=== PATIENT | female | born 1960 | race Caucasian/White ===

== ENCOUNTER 2016-07-21 18:33 | Emergency (ER) | payer MEDICAID ==
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
[2016-07-21 20:09] LABS: APPEARANCE,URINE SLIGHTLY-CLOUDY; BILIRUBIN,URINE NEGATIVE (NEGATIVE); GLUCOSE, URINE >=500 mg/dL (NEGATIVE); KETONES,URINE NEGATIVE (NEGATIVE); LEUKOCYTE ESTERASE,URINE SMALL (NEGATIVE); NITRITE,URINE NEGATIVE (NEGATIVE); PROTEIN,URINE NEGATIVE (NEGATIVE); URINE SPECIFIC GRAVITY 1.028; UROBILINOGEN,URINE NEGATIVE mg/dL (<2.0)
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
[2016-07-21] MEDS ORDERED: FLUCONAZOLE 100 MG TABLET PO ONE (22:09)
[2016-07-21 22:33] VITALS: BP 124/90
== END 2016-07-21 22:33 | disposition home or self-care (01) ==
LOC: ER 18:33
DX: N39.0 Urinary tract infection, site not specified (principal); M54.9 Dorsalgia, unspecified; R35.0 Frequency of micturition; F17.200 Nicotine dependence, unspecified, uncomplicated; E11.9 Type 2 diabetes mellitus without complications; E03.9 Hypothyroidism, unspecified; Z91.040 Latex allergy status
CPT/HCPCS: 81001; 99283

== ENCOUNTER 2016-07-23 17:48 | Emergency (ER) | payer MEDICAID ==
--- NOTE | 2016-07-23 18:01 | ER Document Report ---
ED Medical Screen (RME) - General Stated Complaint: POSSIBLE CYST Notes: patient is a 56 year old female who presents today with multitude of complaints. painful area on her left butt cheek for two weeks that is not draining tooth ache bothering her for 4 weeks admits to vaginal itching neck pain states shes been on lots of antibiotics that she received from here and urgent care. I have greeted and performed a rapid initial assessment of this patient. A comprehensive ED assessment and evaluation of the patient, analysis of test results and completion of the medical decision making process will be conducted by additional ED providers. TRAVEL OUTSIDE OF THE [place] IN LAST 30 DAYS: No - Related Data Allergies/Adverse Reactions: adhesive tape Allergy (Verified 07/23/16 18:00) Latex, Natural Rubber Allergy (Verified 07/23/16 18:00) Past Medical History Endocrine Medical History: Reports: Hx Diabetes Mellitus Type 2, Hx Hypothyroidism Renal/ Medical History: Denies: Hx Peritoneal Dialysis Past Surgical History: Reports: Hx Abdominal Surgery - Immunizations Hx Diphtheria, Pertussis, Tetanus Vaccination: - unknown Physical Exam - Vital signs Vitals: Temp Pulse Resp BP Pulse Ox 97.3 F 88 20 116/69 96 07/23/16 17:58 07/23/16 17:58 07/23/16 17:58 07/23/16 17:58 07/23/16 17:58 Course - Vital Signs Vital signs: Temp Pulse Resp BP Pulse Ox 97.3 F 88 20 116/69 96 07/23/16 17:58 07/23/16 17:58 07/23/16 17:58 07/23/16 17:58 07/23/16 17:58
[2016-07-23 18:47] LABS: APPEARANCE,URINE SLIGHTLY-CLOUDY; BILIRUBIN,URINE NEGATIVE (NEGATIVE); GLUCOSE, URINE >=500 mg/dL (NEGATIVE); KETONES,URINE NEGATIVE (NEGATIVE); LEUKOCYTE ESTERASE,URINE NEGATIVE (NEGATIVE); NITRITE,URINE NEGATIVE (NEGATIVE); PROTEIN,URINE NEGATIVE (NEGATIVE); URINE SPECIFIC GRAVITY 1.028; UROBILINOGEN,URINE NEGATIVE mg/dL (<2.0)
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
[2016-07-23] MEDS ORDERED: SULFAMETHOXAZOLE/TRIMETHOPRIM 800-160 MG TABLET PO ONE (19:31)
[2016-07-23] MEDS ORDERED: INSULIN GLARGINE,HUM.REC.ANLOG 300 UNIT/3 ML INSULN.PEN SUBCUT ONE ×2 (21:31→21:56)
[2016-07-24 04:17] VITALS: BP 134/76
== END 2016-07-23 22:09 | disposition home or self-care (01) ==
LOC: ER 17:48
PROC: 0H98XZZ Drainage of Buttock Skin, External Approach (ICD-10-PCS; principal; 2016-07-23)
DX: L02.31 Cutaneous abscess of buttock (principal); E11.9 Type 2 diabetes mellitus without complications; E03.9 Hypothyroidism, unspecified; E78.5 Hyperlipidemia, unspecified; F17.200 Nicotine dependence, unspecified, uncomplicated; Z59.0 Homelessness; Z79.4 Long term (current) use of insulin
CPT/HCPCS: 99283; 87070; 87205; 82962; 87075; 87077; 81001; 10060; J3490; 87186; J1815